=== PATIENT | female | born 1930 | race Caucasian/White ===

== ENCOUNTER 2021-01-11 17:35 | Emergency (ER) | payer MEDICARE, OTHER ==
[2021-01-11] MEDS ORDERED: Ondansetron 4 MG Tab.DIS PO ONE (18:17)
--- NOTE | 2021-01-11 18:44 | EDM.PDOC ---
<Jensen Smiley G - Last Filed: 01/11/21 18:39> ED HPI GENERAL MEDICAL PROBLEM - General Chief Complaint: Gastrointestinal Problem Stated Complaint: COVID Time Seen by Provider: 01/11/21 18:35 Source of Information: Reports: Patient, Family, Old Records, RN History Limitations: Reports: No Limitations - History of Present Illness INITIAL COMMENTS - FREE TEXT/NARRATIVE: 89 yo female recently dx'd with Covid presents with a complaint of nausea and vomiting. No blood in her emesis. No fever. Not SOB. Has chronic insomnia. Is a little light-headed with standing. Onset: Gradual Duration: Day(s): Location: Reports: Generalized Quality: Reports: Other (pain not reported) Severity: Moderate Improves with: Reports: None Worsens with: Reports: Eating, Other (drinking) Context: Reports: Other (See HPI) Associated Symptoms: Reports: Nausea/Vomiting. Denies: Cough, Fever/Chills, Shortness of Breath Treatments SURGICAL SERVICES DIRECTOR: Reports: Other (see below) (none) - Related Data Allergies Allergy/AdvReac Type Severity Reaction Status Date / Time No Known Allergies Allergy Verified 07/15/13 09:29 Home Meds: Home Meds Ondansetron [Zofran ODT] 4 mg PO Q4H PRN #10 tab.dis 01/11/21 [Rx] Promethazine [Phenergan] 25 mg PO Q8H PRN #30 tab 01/11/21 [Rx] Past Medical History Psychiatric History: Reports: Other (See Below) Other Psychiatric History: insomnia - Infectious Disease History Infectious Disease History: Reports: None - Past Surgical History GI Surgical History: Reports: Cholecystectomy, Colonoscopy Oncologic Surgical History: Reports: Biopsy of Breast ED ROS GENERAL - Review of Systems Constitutional: Reports: Malaise. Denies: Fever HEENT: Reports: No Symptoms Respiratory: Reports: No Symptoms Cardiovascular: Reports: Lightheadedness GI/Abdominal: Reports: Nausea, Vomiting. Denies: Diarrhea, Hematemesis Musculoskeletal: Reports: No Symptoms Skin: Reports: No Symptoms Neurological: Reports: No Symptoms Psychiatric: Reports: No Symptoms ED EXAM, GI/ABD - Physical Exam Exam: See Below Exam Limited By: No Limitations General Appearance: Alert, WD/WN, No Apparent Distress Eyes: Bilateral: Normal Appearance Ears: Normal External Exam, Normal Canal, Hearing Grossly Normal, Normal TMs Nose: Normal Inspection, No Blood Throat/Mouth: Normal Inspection, Normal Lips, Normal Oropharynx, Normal Voice, No Airway Compromise Head: Atraumatic, Normocephalic Neck: Normal Inspection Respiratory/Chest: No Respiratory Distress, Lungs Clear, Normal Breath Sounds, No Accessory Muscle Use Cardiovascular: Regular Rate, Rhythm, No Edema GI/Abdominal Exam: Normal Bowel Sounds, Soft, Non-Tender, No Distention. No: Distended Back Exam: Normal Inspection. No: CVA Tenderness (R), CVA Tenderness (L) Extremities: Normal Inspection, Normal Range of Motion, Non-Tender, No Pedal Edema. 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, unspecified - Discharge Information Prescriptions: Promethazine [Phenergan] 25 mg PO Q8H PRN #30 tab PRN Reason: Nausea Ondansetron [Zofran ODT] 4 mg PO Q4H PRN #10 tab.dis PRN Reason: Nausea Instructions: COVID-19 Frequently Asked Questions Referrals: Juanito Queen PA-C [Primary Care Provider] - Forms: ED Department Discharge Additional Instructions: Please read discharge instructions on post covid syndrome Drink at least 2 liters of water daily Zofran ODT 4 mg every 4 hours as needed for nausea Phenergan 25 mg every 8 hours as needed for nausea Follow up as needed <Jostin Lamb - Last Filed: 01/11/21 19:31> ED ROS GENERAL - Review of Systems Review Of Systems: See Below Constitutional: Reports: No Symptoms HEENT: Reports: No Symptoms Respiratory: Reports: No Symptoms Cardiovascular: Reports: No Symptoms Endocrine: Reports: No Symptoms GI/Abdominal: Reports: Nausea : Reports: No Symptoms Musculoskeletal: Reports: No Symptoms Skin: Reports: No Symptoms ED EXAM, GI/ABD - Physical Exam Exam: See Below Exam Limited By: No Limitations General Appearance: Alert, WD/WN, No Apparent Distress Ears: Normal External Exam, Normal Canal, Hearing Grossly Normal, Normal TMs Nose: Normal Inspection, Normal Mucosa, No Blood Throat/Mouth: Normal Inspection, Normal Lips, Normal Teeth, Normal Gums, Normal Oropharynx Head: Atraumatic, Normocephalic Neck: Normal Inspection Respiratory/Chest: No Respiratory Distress, Lungs Clear, Normal Breath Sounds, No Accessory Muscle Use Cardiovascular: Normal Peripheral Pulses, Regular Rate, Rhythm, No Edema, No Gallop GI/Abdominal Exam: Normal Bowel Sounds, Soft, Non-Tender, No Organomegaly Extremities: Normal Inspection, Normal Range of Motion, Non-Tender, No Pedal Edema Course - Vital Signs Text/Narrative:: Lab result was reviewed and discussed with patient Zofra ODT 4 mg with relief of her nausea Last Recorded V/S: Orthostatic Blood Pressure [ 138/77 Standing] Orthostatic Blood Pressure [ 154/80 Sitting] Orthostatic Blood Pressure [ 156/76 Supine] - Orders/Labs/Meds Orders: Active Orders 24 hr Category Date Time Status Orthostatic Vital Signs [RC] ASDIRECTED Care 01/11/21 18:43 Active Labs: Laboratory Tests 01/11/21 Range/Units 19:00 Sodium 144 (135-145) mmol/L Potassium 4.1 (3.5-5.3) mmol/L Chloride 105 (100-110) mmol/L Carbon Dioxide 28 (21-32) mmol/L BUN 9 (7-18) mg/dL Creatinine 0.8 (0.55-1.02) mg/dL Est Cr Clr Drug Dosing TNP Estimated GFR (MDRD) > 60 (>60) BUN/Creatinine Ratio 11.3 (9-20) Glucose 120 H (80-116) mg/dL Calcium 9.1 (8.6-10.2) mg/dL Meds: Medications Discontinued Medications Generic Name Dose Route Start Last Admin Trade Name Robbieq PRN Reason Stop Dose Admin Ondansetron HCl 4 mg 01/11/21 18:17 01/11/21 18:40 Ondansetron 4 Mg Tab.Dis PO 01/11/21 18:18 4 mg ONETIME ONE Administration Departure - Departure Time of Disposition: 17:30 Condition: Good
== END 2021-01-11 19:40 | disposition home or self-care (01) ==
LOC: FB.ED 17:35 → SUPCPDRO 17:35 → FB.ED 19:40
DX: U09.9 Post COVID-19 condition, unspecified (principal)
CPT/HCPCS: 36415; 80048; 99284; A9270